=== PATIENT | male | born 1990 | race Caucasian/White ===

== ENCOUNTER 2022-09-07 23:06 | Emergency (ER) | payer SELFPAY | END 2022-09-08 01:08 | disposition home or self-care (01) | LOC: JD.ED 23:06 | DX: S61.052A Open bite of left thumb without damage to nail, initial encounter (principal); L03.012 Cellulitis of left finger; F17.210 Nicotine dependence, cigarettes, uncomplicated; W55.01XA Bitten by cat, initial encounter | CPT/HCPCS: 99283 ==